=== PATIENT | female | born 1940 | race Caucasian/White ===

== ENCOUNTER 2021-11-23 06:21 | Inpatient (IN) ==
[2021-11-23] MEDS ORDERED: Piperacillin/Tazobac ADVAN 3.375 GM in NS 0.9% 100 ml BAG 100 ML IV ONE (06:48)
[2021-11-23] MEDS: NS 0.9% 1000 ml BAG 1,000 ML IV SCH (06:56)
[2021-11-23 07:14] LABS: Hematocrit 33 % (35-47); Hemoglobin 11.1 g/dL (12.0-16.0); Mean Corpuscular HGB Conc 33 g/dL (31-36); Mean Corpuscular Hemoglobin 31 pg (27-31); Mean Corpuscular Volume 92 fL (80-97); Mean Platelet Volume 9.5 fL (7.4-10.4); Platelet Count 185 10^3/uL (150-450); Red Blood Count 3.58 10^6 /uL (3.70-4.87); Red Cell Distribution Width 13 % (10-15); White Blood Count 10.3 10^3/uL (3.5-10.8)
[2021-11-23 07:23] LABS: INR 1.19 (0.86-1.15)
[2021-11-23 07:24] LABS: Activated Partial Thrombo Time 24.9 seconds (26.0-38.0)
[2021-11-23 07:50] LABS: Albumin/Globulin Ratio 1.4 (1-3); C Reactive Protein 150.67 mg/L (<8.01); Calcium 9.5 mg/dL (8.6-10.3); Globulin 2.9 g/dL (2-4); Potassium 4.2 mmol/L (3.5-5.0); Total Bilirubin 0.6 mg/dL (0.2-1.0); Total Protein 6.9 g/dL (6.4-8.9); eGFR CKD-EPI 39.7 (>60)
[2021-11-23 07:52] LABS: ABS Lymphocytes 0.4 10^3/ul (1.0-4.8); ABS Monocytes 0.1 10^3/ul (0-0.8); ABS Neutrophils 9.8 10^3/ul (1.5-7.7); Eosinophil % 0.3 %
[2021-11-23] MEDS ORDERED: Vancomycin 1,250 MG in NS 0.9% 250 ml 250 ML IVPB ONE (08:00)
[2021-11-23] MEDS: Lactated Ringers 1000 ml BAG 1,000 ML IV SCH (08:31)
[2021-11-23] MEDS ORDERED: Morphine 2 MG/ML SYRINGE IV ONE (09:33)
[2021-11-23] MEDS ORDERED: Ondansetron 4 mg VIAL 2 MG/ML 2 ml VIAL IV ONE (09:33)
[2021-11-23 09:46] LABS: Urine Appearance Cloudy; Urine Bilirubin Negative (Negative); Urine Blood 1+ (Negative); Urine Color Yellow; Urine Glucose 3+(>=500 mg/dL) (Negative); Urine Ketones Negative (Negative); Urine Nitrite Positive (Negative); Urine Protein 1+(30 mg/dL) (Negative); Urine Specific Gravity 1.013 (1.002-1.030); Urine Urobilinogen Negative (Negative)
[2021-11-23 09:52] LABS: Urine Bacteria 1+ (Absent); Urine Granular Casts Present (Absent); Urine Red Blood Cell 3+(>10/hpf) (Absent); Urine Squamous Epithelial Cell Present (Absent); Urine White Blood Cell Trace(0-5/hpf) (Absent)
[2021-11-23 10:01] LABS: High Sensitivity Troponin 1 Hr 22 pg/mL (<15)
[2021-11-23] MEDS ORDERED: NS 0.9% 1000 ml BAG 1,000 ML IV SCH (12:15)
[2021-11-23] MEDS: Enoxaparin 40 MG/0.4 ML SYR SUBCUT SCH (12:18)
[2021-11-23] MEDS ORDERED: cefTRIAXone 1 gm/50 mL D5W 1 GM/50 ML BAG IV SCH (15:00)
[2021-11-23] MEDS ORDERED: Dextrose 50% Syringe 50 ml 25 GM/50 ML SYRINGE IV PUSH PRN (15:48)
[2021-11-23] MEDS ORDERED: CEFEPIME 2 GM in Dextrose 50 mL IV SCH (20:00)
[2021-11-24 05:16] LABS: ABS Eosinophils 0.1 10^3/ul (0-0.6); ABS Lymphocytes 0.9 10^3/ul (1.0-4.8); ABS Monocytes 0.9 10^3/ul (0-0.8); ABS Neutrophils 11.2 10^3/ul (1.5-7.7); Eosinophil % 0.6 %; Hematocrit 29 % (35-47); Hemoglobin 9.2 g/dL (12.0-16.0); Lymphocyte % 6.9 %; Mean Corpuscular HGB Conc 32 g/dL (31-36); Mean Corpuscular Hemoglobin 30 pg (27-31); Mean Corpuscular Volume 94 fL (80-97); Mean Platelet Volume 10.4 fL (7.4-10.4); Platelet Count 134 10^3/uL (150-450); Red Blood Count 3.09 10^6 /uL (3.70-4.87); Red Cell Distribution Width 14 % (10-15)
[2021-11-24 05:18] LABS: Calcium 7.8 mg/dL (8.6-10.3); Potassium 4.2 mmol/L (3.5-5.0)
[2021-11-24 05:24] LABS: eGFR CKD-EPI 52.7 (>60)
[2021-11-24] MEDS ORDERED: Acetaminophen IV 1 GM/100ML 100 ML IV PRN (06:29)
[2021-11-24] MEDS ORDERED: cefTRIAXone 1 gm/50 mL D5W 1 GM/50 ML BAG IV SCH (08:00)
[2021-11-24] MEDS ORDERED: Iohexol 350 (CONTRAST) 500 ML MDV IV ONE (08:36)
[2021-11-24] MEDS ORDERED: Lactated Ringers 1000 ml BAG 1,000 ML IV SCH (09:00)
[2021-11-24] MEDS: Aspirin EC 81 mg TAB.EC (enteric coated) PO SCH (10:15)
[2021-11-24] MEDS ORDERED: Piperacillin/Tazobac ADVAN 3.375 GM in NS 0.9% 100 ml BAG 100 ML IV ONE (12:43)
[2021-11-24] MEDS ORDERED: Zosyn per Pharmacy NOTE FOLLOW UP SCH (13:00)
[2021-11-24] MEDS: Enoxaparin 40 MG/0.4 ML SYR SUBCUT SCH (13:13)
[2021-11-24] MEDS: ZOSYN 3.375 GM Q8H per EXTENDED INFUSION IV SCH ×2 (17:58→21:06)
[2021-11-24] MEDS ORDERED: Amoxicillin/Clavul 875/125 TAB (Augmentin 875 tab) PO SCH (21:00)
[2021-11-25 05:52] LABS: ABS Eosinophils 0.2 10^3/ul (0-0.6); ABS Lymphocytes 0.8 10^3/ul (1.0-4.8); ABS Monocytes 0.8 10^3/ul (0-0.8); ABS Neutrophils 8.4 10^3/ul (1.5-7.7); Eosinophil % 1.8 %; Hematocrit 29 % (35-47); Hemoglobin 9.4 g/dL (12.0-16.0); Lymphocyte % 7.7 %; Mean Corpuscular HGB Conc 33 g/dL (31-36); Mean Corpuscular Hemoglobin 30 pg (27-31); Mean Corpuscular Volume 92 fL (80-97); Mean Platelet Volume 9.5 fL (7.4-10.4); Platelet Count 165 10^3/uL (150-450); Red Blood Count 3.13 10^6 /uL (3.70-4.87); Red Cell Distribution Width 13 % (10-15); White Blood Count 10.1 10^3/uL (3.5-10.8)
[2021-11-25 06:17] LABS: Albumin 3.4 g/dL (3.2-5.2); Albumin/Globulin Ratio 1.3 (1-3); Calcium 8.8 mg/dL (8.6-10.3); Globulin 2.7 g/dL (2-4); Potassium 3.9 mmol/L (3.5-5.0); Total Bilirubin 0.3 mg/dL (0.2-1.0); Total Protein 6.1 g/dL (6.4-8.9); eGFR CKD-EPI 49.9 (>60)
[2021-11-25] MEDS ORDERED: Piperacillin/Tazobac ADVAN 3.375 GM in NS 0.9% 100 ml BAG 100 ML IV ONE (09:00)
[2021-11-25] MEDS ORDERED: Zosyn per Pharmacy NOTE FOLLOW UP SCH (09:00)
[2021-11-25] MEDS: Aspirin EC 81 mg TAB.EC (enteric coated) PO SCH (09:35)
[2021-11-25] MEDS: Enoxaparin 40 MG/0.4 ML SYR SUBCUT SCH (11:55)
[2021-11-25] MEDS ORDERED: ZOSYN 3.375 GM Q8H per EXTENDED INFUSION IV SCH (13:30)
[2021-11-25] MEDS ORDERED: cefTRIAXone 1 gm/50 mL D5W 1 GM/50 ML BAG IV SCH (21:00)
[2021-11-26 07:21] LABS: ABS Eosinophils 0.2 10^3/ul (0-0.6); ABS Monocytes 0.7 10^3/ul (0-0.8); ABS Neutrophils 6.3 10^3/ul (1.5-7.7); Eosinophil % 2.4 %; Hematocrit 28 % (35-47); Hemoglobin 9.6 g/dL (12.0-16.0); Lymphocyte % 12.5 %; Mean Corpuscular HGB Conc 34 g/dL (31-36); Mean Corpuscular Hemoglobin 31 pg (27-31); Mean Corpuscular Volume 91 fL (80-97); Mean Platelet Volume 9.3 fL (7.4-10.4); Platelet Count 189 10^3/uL (150-450); Red Blood Count 3.11 10^6 /uL (3.70-4.87); Red Cell Distribution Width 13 % (10-15); White Blood Count 8.3 10^3/uL (3.5-10.8)
[2021-11-26 07:55] LABS: Calcium 9.1 mg/dL (8.6-10.3); Magnesium 1.5 mg/dL (1.9-2.7); Potassium 3.6 mmol/L (3.5-5.0); eGFR CKD-EPI 60.2 (>60)
[2021-11-26] MEDS: Aspirin EC 81 mg TAB.EC (enteric coated) PO SCH (08:09)
[2021-11-26] MEDS ORDERED: Magnesium Sulfate IV 3 GM in NS 0.9% 100 ml BAG 100 ML IVPB ONE (08:38)
[2021-11-26] MEDS ORDERED: Magnesium Sulfate 2 GM IV (Premix) IVPB ONE (09:00)
[2021-11-26] MEDS ORDERED: Magnesium Sulfate 1 GM IV 1 GM/100 ML BAG IV ONE (10:00)
[2021-11-26 11:12] VITALS: BP 142/67
== END 2021-11-26 11:40 | disposition home or self-care (01) | DRG 189 ==
LOC: ED 06:21 → SUATTDRO 11:17 → EDHOLD 11:17 → MED 15:54
PROVIDERS: ADMIT Hospitalist; ATTEND Student in an Organized Health Care Education/Training Program

== ENCOUNTER 2021-12-07 12:35 | Inpatient (IN) ==
[2021-12-07] MEDS ORDERED: NS 0.9% 1000 ml BAG 500 ML IV ONE (13:00)
[2021-12-07] MEDS ORDERED: Ondansetron 4 mg VIAL 2 MG/ML 2 ml VIAL IV ONE ×2 (13:03→17:12)
[2021-12-07 13:48] LABS: ABS Basophils 0.1 10^3/ul (0-0.2); ABS Eosinophils 0.1 10^3/ul (0-0.6); ABS Lymphocytes 1.4 10^3/ul (1.0-4.8); ABS Monocytes 0.7 10^3/ul (0-0.8); ABS Neutrophils 9.7 10^3/ul (1.5-7.7); Eosinophil % 0.9 %; Hematocrit 35 % (35-47); Hemoglobin 11.3 g/dL (12.0-16.0); Lymphocyte % 11.3 %; Mean Corpuscular HGB Conc 32 g/dL (31-36); Mean Corpuscular Hemoglobin 30 pg (27-31); Mean Corpuscular Volume 94 fL (80-97); Mean Platelet Volume 9.1 fL (7.4-10.4); Platelet Count 327 10^3/uL (150-450); Red Blood Count 3.78 10^6 /uL (3.70-4.87); Red Cell Distribution Width 14 % (10-15)
[2021-12-07 13:52] LABS: Urine Appearance Cloudy; Urine Bilirubin Negative (Negative); Urine Blood 1+ (Negative); Urine Color Yellow; Urine Glucose 3+(>=500 mg/dL) (Negative); Urine Ketones Negative (Negative); Urine Nitrite Negative (Negative); Urine Protein Negative (Negative); Urine Specific Gravity 1.008 (1.002-1.030); Urine Urobilinogen Negative (Negative)
[2021-12-07 14:11] LABS: Urine Bacteria 1+ (Absent); Urine Red Blood Cell 3+(>10/hpf) (Absent); Urine Squamous Epithelial Cell Present (Absent); Urine White Blood Cell 2+(11-20/hpf) (Absent); Urine Yeast Present (Absent)
[2021-12-07 14:11] LABS: High Sens Troponin Baseline 6 pg/mL (<15)
[2021-12-07 14:32] LABS: TSH Ultra Thyroid Stim Horm 18.66 mcIU/mL (0.34-5.60)
[2021-12-07 14:36] LABS: ALT 20 U/L (7-52); Albumin 3.6 g/dL (3.2-5.2); Albumin/Globulin Ratio 1.4 (1-3); Alkaline Phosphatase 110 U/L (35-149); Blood Urea Nitrogen 14 mg/dL (6-24); CO2 Carbon Dioxide 25 mmol/L (22-32); Chloride 104 mmol/L (101-111); Globulin 2.6 g/dL (2-4); Glucose 435 mg/dL (70-100); Sodium 139 mmol/L (135-145); Total Protein 6.2 g/dL (6.4-8.9); eGFR CKD-EPI 49.9 (>60)
[2021-12-07] MEDS ORDERED: NS 0.9% 1000 ml BAG 1,000 ML IV ONE (14:53)
[2021-12-07] MEDS ORDERED: cefTRIAXone 1 gm/50 mL D5W 1 GM/50 ML BAG IV ONE (14:54)
[2021-12-07 14:56] LABS: Anion Gap 10 mmol/L (2-11); Magnesium 1.9 mg/dL (1.9-2.7)
[2021-12-07] MEDS ORDERED: Iohexol 350 (CONTRAST) 500 ML MDV IV ONE (15:43)
[2021-12-07 15:48] LABS: High Sensitivity Troponin 1 Hr 3 pg/mL (<15)
[2021-12-07 16:20] LABS: Potassium Redraw 4.3 mmol/L (3.5-5.0)
[2021-12-07] MEDS ORDERED: Ondansetron 4 mg VIAL 2 MG/ML 2 ml VIAL IV PRN (19:15)
[2021-12-07] MEDS ORDERED: Dextrose 50% Syringe 50 ml 25 GM/50 ML SYRINGE IV PUSH PRN (19:21)
[2021-12-07] MEDS: Enoxaparin 40 MG/0.4 ML SYR SUBCUT SCH (21:02)
[2021-12-07] MEDS: metroNIDAZOLE IV 500 MG/100ML 500 MG/100 ML BAG IVPB SCH (22:23)
[2021-12-08 05:43] LABS: Hematocrit 34 % (35-47); Hemoglobin 11.2 g/dL (12.0-16.0); Mean Corpuscular HGB Conc 33 g/dL (31-36); Mean Corpuscular Hemoglobin 31 pg (27-31); Mean Corpuscular Volume 93 fL (80-97); Mean Platelet Volume 9.6 fL (7.4-10.4); Platelet Count 278 10^3/uL (150-450); Red Blood Count 3.61 10^6 /uL (3.70-4.87); Red Cell Distribution Width 14 % (10-15); White Blood Count 15.1 10^3/uL (3.5-10.8)
[2021-12-08 06:09] LABS: CO2 Carbon Dioxide 21 mmol/L (22-32); Calcium 9.1 mg/dL (8.6-10.3); Chloride 107 mmol/L (101-111); Magnesium 1.6 mg/dL (1.9-2.7); Sodium 142 mmol/L (135-145)
[2021-12-08 06:14] LABS: Blood Urea Nitrogen 13 mg/dL (6-24); Glucose 250 mg/dL (70-100); eGFR CKD-EPI 57.3 (>60)
[2021-12-08] MEDS: metroNIDAZOLE IV 500 MG/100ML 500 MG/100 ML BAG IVPB SCH ×3 (06:20→22:31)
[2021-12-08 06:58] LABS: Anion Gap 14 mmol/L (2-11)
[2021-12-08] MEDS ORDERED: Magnesium Sulf 4 GM/100 ML IV 4,000 MG/100 ML BAG IVPB ONE (07:30)
[2021-12-08] MEDS: Aspirin EC 81 mg TAB.EC (enteric coated) PO SCH (08:06)
[2021-12-08] MEDS ORDERED: Acetaminophen IV 1 GM/100ML 100 ML IV ONE (08:58)
[2021-12-08 09:37] LABS: C Reactive Protein 65.58 mg/L (<8.01)
[2021-12-08] MEDS: cefTRIAXone 1 gm/50 mL D5W 1 GM/50 ML BAG IV SCH (09:41)
[2021-12-08] MEDS ORDERED: Vancomycin 1,000 MG in NS 0.9% 250 ml 250 ML IVPB ONE (18:30)
[2021-12-08] MEDS ORDERED: Vancomycin per Pharmacy 1 EA NOTE FOLLOW UP PRN (19:27)
[2021-12-08] MEDS: Enoxaparin 40 MG/0.4 ML SYR SUBCUT SCH (21:20)
[2021-12-09] MEDS ORDERED: Vancomycin 500 MG in NS 0.9% 250 ML IVPB SCH (06:00)
[2021-12-09] MEDS: Aspirin EC 81 mg TAB.EC (enteric coated) PO SCH (08:02)
[2021-12-09] MEDS: Vancomycin 500 MG in NS 0.9% 250 ml 250 ML IVPB SCH ×2 (09:20→21:40)
[2021-12-09 09:36] LABS: Hematocrit 32 % (35-47); Hemoglobin 10.4 g/dL (12.0-16.0); Mean Corpuscular HGB Conc 32 g/dL (31-36); Mean Corpuscular Hemoglobin 31 pg (27-31); Mean Corpuscular Volume 95 fL (80-97); Red Blood Count 3.39 10^6 /uL (3.70-4.87); Red Cell Distribution Width 14 % (10-15); White Blood Count 16.8 10^3/uL (3.5-10.8)
[2021-12-09] MEDS: metroNIDAZOLE IV 500 MG/100ML 500 MG/100 ML BAG IVPB SCH ×3 (09:38→17:38)
[2021-12-09 10:09] LABS: Calcium 8.7 mg/dL (8.6-10.3); Magnesium 2.2 mg/dL (1.9-2.7); Potassium 4.3 mmol/L (3.5-5.0)
[2021-12-09 10:14] LABS: eGFR CKD-EPI 55.9 (>60)
[2021-12-09 10:52] LABS: ABS Lymphocytes 1.2 10^3/ul (1.0-4.8); ABS Neutrophils 14.5 10^3/ul (1.5-7.7); Eosinophil % 0.1 %; Lymphocyte % 7.2 %; Platelet Count 248 10^3/uL (150-450)
[2021-12-09] MEDS ORDERED: Lorazepam PYXIS KEY PRN (11:55)
[2021-12-09] MEDS ORDERED: LORazepam 2 mg VIAL 1 ml IV PUSH PRN (11:55)
[2021-12-09] MEDS: cefTRIAXone 1 gm/50 mL D5W 1 GM/50 ML BAG IV SCH ×2 (12:42→13:17)
[2021-12-09] MEDS: Enoxaparin 40 MG/0.4 ML SYR SUBCUT SCH (21:40)
[2021-12-10] MEDS: metroNIDAZOLE IV 500 MG/100ML 500 MG/100 ML BAG IVPB SCH ×3 (01:59→18:34)
[2021-12-10] MEDS ORDERED: Vancomycin Trough Check NOTE FOLLOW UP ONE (08:30)
[2021-12-10 08:52] LABS: ABS Basophils 0.1 10^3/ul (0-0.2); ABS Eosinophils 0.1 10^3/ul (0-0.6); ABS Lymphocytes 1.1 10^3/ul (1.0-4.8); ABS Monocytes 0.6 10^3/ul (0-0.8); ABS Neutrophils 7.6 10^3/ul (1.5-7.7); Eosinophil % 1.2 %; Hematocrit 26 % (35-47); Hemoglobin 8.6 g/dL (12.0-16.0); Lymphocyte % 11.7 %; Mean Corpuscular HGB Conc 33 g/dL (31-36); Mean Corpuscular Hemoglobin 31 pg (27-31); Mean Corpuscular Volume 93 fL (80-97); Mean Platelet Volume 8.7 fL (7.4-10.4); Platelet Count 243 10^3/uL (150-450); Red Cell Distribution Width 14 % (10-15); White Blood Count 9.5 10^3/uL (3.5-10.8)
[2021-12-10 09:02] LABS: Calcium 8.2 mg/dL (8.6-10.3); Potassium 3.4 mmol/L (3.5-5.0)
[2021-12-10 09:08] LABS: C Reactive Protein 77.91 mg/L (<8.01); eGFR CKD-EPI 69.9 (>60)
[2021-12-10] MEDS: Aspirin EC 81 mg TAB.EC (enteric coated) PO SCH (09:09)
[2021-12-10] MEDS: Vancomycin 500 MG in NS 0.9% 250 ml 250 ML IVPB SCH ×2 (10:02→10:04)
[2021-12-10] MEDS ORDERED: Vancomycin 1,250 MG in NS 0.9% 250 ml 250 ML IVPB SCH (11:00)
[2021-12-10] MEDS: cefTRIAXone 1 gm/50 mL D5W 1 GM/50 ML BAG IV SCH (13:13)
[2021-12-10] MEDS: Linezolid 600 MG IVPREMIX(*) 600 MG/300 ML BAG IVPB SCH (17:29)
[2021-12-10] MEDS: Enoxaparin 40 MG/0.4 ML SYR SUBCUT SCH (20:46)
[2021-12-11] MEDS: metroNIDAZOLE IV 500 MG/100ML 500 MG/100 ML BAG IVPB SCH ×3 (02:04→18:16)
[2021-12-11] MEDS: Linezolid 600 MG IVPREMIX(*) 600 MG/300 ML BAG IVPB SCH ×2 (04:10→16:48)
[2021-12-11 08:03] LABS: ABS Eosinophils 0.2 10^3/ul (0-0.6); ABS Lymphocytes 1.3 10^3/ul (1.0-4.8); ABS Monocytes 0.6 10^3/ul (0-0.8); ABS Neutrophils 5.7 10^3/ul (1.5-7.7); Eosinophil % 2.3 %; Hematocrit 27 % (35-47); Hemoglobin 9.1 g/dL (12.0-16.0); Lymphocyte % 16.9 %; Mean Corpuscular HGB Conc 34 g/dL (31-36); Mean Corpuscular Hemoglobin 31 pg (27-31); Mean Corpuscular Volume 92 fL (80-97); Mean Platelet Volume 9.2 fL (7.4-10.4); Nucleated Red Blood Cells % 0.1; Platelet Count 236 10^3/uL (150-450); Red Blood Count 2.94 10^6 /uL (3.70-4.87); Red Cell Distribution Width 14 % (10-15); White Blood Count 7.8 10^3/uL (3.5-10.8)
[2021-12-11 08:11] LABS: Calcium 8.3 mg/dL (8.6-10.3); Potassium 3.9 mmol/L (3.5-5.0); eGFR CKD-EPI 66.1 (>60)
[2021-12-11] MEDS: Aspirin EC 81 mg TAB.EC (enteric coated) PO SCH (09:09)
[2021-12-11] MEDS: cefTRIAXone 1 gm/50 mL D5W 1 GM/50 ML BAG IV SCH (12:02)
[2021-12-11] MEDS: Enoxaparin 40 MG/0.4 ML SYR SUBCUT SCH (19:59)
[2021-12-12] MEDS: metroNIDAZOLE IV 500 MG/100ML 500 MG/100 ML BAG IVPB SCH ×3 (01:42→19:25)
[2021-12-12] MEDS: Linezolid 600 MG IVPREMIX(*) 600 MG/300 ML BAG IVPB SCH ×2 (04:05→18:12)
[2021-12-12] MEDS: Aspirin EC 81 mg TAB.EC (enteric coated) PO SCH ×2 (08:17→10:03)
[2021-12-12 08:20] LABS: Calcium 8.2 mg/dL (8.6-10.3); Magnesium 1.4 mg/dL (1.9-2.7); Potassium 3.3 mmol/L (3.5-5.0); eGFR CKD-EPI 68.9 (>60)
[2021-12-12] MEDS: cefTRIAXone 1 gm/50 mL D5W 1 GM/50 ML BAG IV SCH (11:51)
[2021-12-12] MEDS ORDERED: Magnesium Sulf 4 GM/100 ML IV 4,000 MG/100 ML BAG IVPB ONE (15:38)
[2021-12-12] MEDS ORDERED: Potassium Chloride LIQUID 20 MEQ/15 ML LIQUID PO ONE (15:39)
[2021-12-12] MEDS: Enoxaparin 40 MG/0.4 ML SYR SUBCUT SCH (19:40)
[2021-12-13] MEDS: metroNIDAZOLE IV 500 MG/100ML 500 MG/100 ML BAG IVPB SCH ×3 (01:37→19:32)
[2021-12-13] MEDS: Linezolid 600 MG IVPREMIX(*) 600 MG/300 ML BAG IVPB SCH ×2 (04:07→17:34)
[2021-12-13] MEDS: Aspirin EC 81 mg TAB.EC (enteric coated) PO SCH (08:22)
[2021-12-13] MEDS ORDERED: Vancomycin Trough Check NOTE FOLLOW UP ONE (10:30)
[2021-12-13] MEDS: cefTRIAXone 1 gm/50 mL D5W 1 GM/50 ML BAG IV SCH (12:05)
[2021-12-13] MEDS: Enoxaparin 40 MG/0.4 ML SYR SUBCUT SCH (19:35)
[2021-12-14] MEDS: metroNIDAZOLE IV 500 MG/100ML 500 MG/100 ML BAG IVPB SCH ×3 (01:20→19:33)
[2021-12-14] MEDS: Linezolid 600 MG IVPREMIX(*) 600 MG/300 ML BAG IVPB SCH ×2 (04:13→17:50)
[2021-12-14 07:03] LABS: ABS Eosinophils 0.2 10^3/ul (0-0.6); ABS Lymphocytes 1.3 10^3/ul (1.0-4.8); ABS Monocytes 0.6 10^3/ul (0-0.8); ABS Neutrophils 2.7 10^3/ul (1.5-7.7); Eosinophil % 4.1 %; Hematocrit 29 % (35-47); Hemoglobin 9.8 g/dL (12.0-16.0); Lymphocyte % 27.7 %; Mean Corpuscular HGB Conc 34 g/dL (31-36); Mean Corpuscular Hemoglobin 31 pg (27-31); Mean Corpuscular Volume 92 fL (80-97); Mean Platelet Volume 8.3 fL (7.4-10.4); Platelet Count 268 10^3/uL (150-450); Red Blood Count 3.17 10^6 /uL (3.70-4.87); Red Cell Distribution Width 14 % (10-15); White Blood Count 4.8 10^3/uL (3.5-10.8)
[2021-12-14 07:44] LABS: Calcium 8.2 mg/dL (8.6-10.3); Magnesium 1.8 mg/dL (1.9-2.7); Potassium 3.1 mmol/L (3.5-5.0)
[2021-12-14] MEDS: Aspirin EC 81 mg TAB.EC (enteric coated) PO SCH (10:28)
[2021-12-14] MEDS: cefTRIAXone 1 gm/50 mL D5W 1 GM/50 ML BAG IV SCH (12:40)
[2021-12-14] MEDS ORDERED: Potassium Chloride LIQUID 20 MEQ/15 ML LIQUID PO ONE (15:30)
[2021-12-14] MEDS ORDERED: Magnesium Sulfate 2 gm BAG 2 GM/50 ML BAG IVPB ONE (15:31)
[2021-12-14] MEDS: Enoxaparin 40 MG/0.4 ML SYR SUBCUT SCH (19:34)
[2021-12-14] MEDS: KCL 20 MEQ/100 ML IVPREMIX 20 MEQ/100 ML BAG IV SCH ×2 (20:50→21:15)
[2021-12-15] MEDS: metroNIDAZOLE IV 500 MG/100ML 500 MG/100 ML BAG IVPB SCH ×3 (02:39→17:53)
[2021-12-15] MEDS: Linezolid 600 MG IVPREMIX(*) 600 MG/300 ML BAG IVPB SCH ×2 (05:33→16:27)
[2021-12-15 06:10] LABS: Calcium 8.2 mg/dL (8.6-10.3); Potassium 3.4 mmol/L (3.5-5.0); eGFR CKD-EPI 68.9 (>60)
[2021-12-15] MEDS: Aspirin EC 81 mg TAB.EC (enteric coated) PO SCH (09:02)
[2021-12-15] MEDS ORDERED: KCL 20 MEQ/100 ML IVPREMIX 20 MEQ/100 ML BAG IV ONE (10:38)
[2021-12-15] MEDS: cefTRIAXone 1 gm/50 mL D5W 1 GM/50 ML BAG IV SCH (14:47)
[2021-12-15] MEDS: Enoxaparin 40 MG/0.4 ML SYR SUBCUT SCH (20:07)
[2021-12-16] MEDS: metroNIDAZOLE IV 500 MG/100ML 500 MG/100 ML BAG IVPB SCH ×2 (02:44→08:52)
[2021-12-16] MEDS: Linezolid 600 MG IVPREMIX(*) 600 MG/300 ML BAG IVPB SCH (03:45)
[2021-12-16 06:52] LABS: Rapid COVID-19 Molecular Undetected (Undetected)
[2021-12-16] MEDS: KCL 20 MEQ/100 ML IVPREMIX 20 MEQ/100 ML BAG IV SCH ×2 (07:19→08:52)
[2021-12-16] MEDS: Aspirin EC 81 mg TAB.EC (enteric coated) PO SCH (08:38)
[2021-12-16 11:47] VITALS: BP 136/84
== END 2021-12-16 13:15 | DRG 872 ==
LOC: ED 12:35 → EDHOLD 19:15 → SUATTDRO 19:15 → MED 21:43
PROVIDERS: ADMIT Student in an Organized Health Care Education/Training Program; ATTEND Student in an Organized Health Care Education/Training Program

== ENCOUNTER 2023-05-28 22:34 | Inpatient (IN) ==
[2023-05-28] MEDS ORDERED: Haloperidol 5 mg/ml SDV IV/IM 5 MG/ML AMP IV SLOW PU PRN (22:52)
[2023-05-28] MEDS ORDERED: Ondansetron 4 mg VIAL 2 MG/ML 2 ml VIAL IV ONE (22:52)
[2023-05-28] MEDS ORDERED: Morphine 4 MG/ML VIAL (1 ml) IV ONE (22:53)
[2023-05-28] MEDS ORDERED: Polyethylene Glycol 3350 17 GM PACKET PO PRN (23:29)
[2023-05-28] MEDS ORDERED: Senna TAB 8.6 mg TAB PO PRN (23:29)
[2023-05-28] MEDS ORDERED: Heparin 5000 UNITS/ML 1 mL VIAL SUBCUT ONE (23:31)
[2023-05-29] MEDS ORDERED: Heparin 5000 UNITS/ML 1 mL VIAL ONE (00:18)
[2023-05-29 00:24] LABS: ABS Lymphocytes 0.7 10^3/uL (1.0-4.8); ABS Monocytes 0.8 10^3/uL (0.0-0.9); ABS Neutrophils 8.5 10^3/uL (1.5-7.6); Eosinophil % 0.3 %; Hematocrit 22.6 % (35-45); Hemoglobin 7.8 g/dL (11.5-14.3); Mean Corpuscular Hgb Conc 34.6 g/dL (31-36); Mean Corpuscular Volume 92.4 fL (80-97); Mean Platelet Volume 8.4 fL (7.5-11.2); Platelet Count 284 10^3/uL (150-450); Red Blood Count 2.45 10^6/uL (3.63-4.92); Red Cell Distribution Width 15.3 % (12-17); White Blood Count 10.1 10^3/uL (3.8-11.8)
[2023-05-29] MEDS ORDERED: Dextrose 50% Syringe 50 ml 25 GM/50 ML SYRINGE IV PUSH PRN (00:43)
[2023-05-29 00:44] LABS: Calcium 8.8 mg/dL (8.6-10.3); Creatinine, Serum 1.47 mg/dL (0.51-0.95); Magnesium 2.3 mg/dL (1.9-2.7); Potassium 4.6 mmol/L (3.5-5.0); eGFR CKD-EPI 34.8 (>60)
[2023-05-29] MEDS: Acetaminophen IV 1 GM/100ML 1,000 MG/100 ML BAG IV SCH ×4 (00:48→21:20)
[2023-05-29] MEDS: Morphine 2 MG/ML SYRINGE IV PRN ×2 (01:52→08:08)
[2023-05-29 06:33] LABS: ABS Lymphocytes 1.1 10^3/uL (1.0-4.8); ABS Monocytes 0.7 10^3/uL (0.0-0.9); ABS Neutrophils 7.1 10^3/uL (1.5-7.6); Eosinophil % 0.1 %; Hematocrit 28.7 % (35-45); Hemoglobin 9.8 g/dL (11.5-14.3); Mean Corpuscular Hemoglobin 30.8 pg (27-33); Mean Corpuscular Hgb Conc 34.2 g/dL (31-36); Mean Corpuscular Volume 89.9 fL (80-97); Mean Platelet Volume 8.5 fL (7.5-11.2); Platelet Count 265 10^3/uL (150-450); Red Blood Count 3.19 10^6/uL (3.63-4.92); Red Cell Distribution Width 16.1 % (12-17); White Blood Count 8.9 10^3/uL (3.8-11.8)
[2023-05-29] MEDS ORDERED: Lactated Ringers 1000 ml BAG 1,000 ML IV SCH (07:00)
[2023-05-29 07:48] LABS: TSH Ultra Thyroid Stim Horm 20.51 mcIU/mL (0.34-5.60)
[2023-05-29 08:02] LABS: Vitamin D Total 25(OH) 45.2 ng/mL (20-50)
[2023-05-29 08:06] LABS: Free T4 0.69 ng/dL (0.61-1.12)
[2023-05-29] MEDS ORDERED: Aspirin EC 81 mg TAB.EC (enteric coated) PO SCH (09:00)
[2023-05-29] MEDS ORDERED: ceFAZolin 2 GM in NS PREMIX 2 GM/100 ML BAG IVPB ONE (15:07)
[2023-05-29] MEDS ORDERED: Naloxone 0.4 mg VIAL 0.4 mg/ml 1 ml VIAL IV PRN (15:31)
[2023-05-29] MEDS ORDERED: HYDROmorphone 1 MG/1 ML SYRINGE IV PRN (15:31)
[2023-05-29] MEDS ORDERED: Propofol 10 MG/ML 20 ML BTL ONE (15:57)
[2023-05-29] MEDS ORDERED: Lidocaine 2% PF 5 ML VIAL ONE (15:57)
[2023-05-29] MEDS ORDERED: Ondansetron 4 mg VIAL 2 MG/ML 2 ml VIAL ONE (15:57)
[2023-05-29] MEDS ORDERED: fentaNYL 100 mcg/2 ml 50 MCG/ML VIAL ONE (15:57)
[2023-05-29] MEDS ORDERED: Dexamethasone IV 4 MG/ML VIAL 1 ml VIAL ONE (15:57)
[2023-05-29] MEDS ORDERED: Morphine 2 MG/ML SYRINGE IV PRN (16:22)
[2023-05-29] MEDS ORDERED: Magnesium Hydroxide LIQ 30 ML UDC PO PRN (16:22)
[2023-05-29] MEDS ORDERED: Senna TAB 8.6 mg TAB PO PRN (16:22)
[2023-05-29] MEDS ORDERED: Polyethylene Glycol 3350 17 GM PACKET PO PRN (16:22)
[2023-05-29] MEDS ORDERED: Bupivacaine 0.25% SDV 30 ML ONE (16:43)
[2023-05-29] MEDS ORDERED: Acetaminophen IV 1 GM/100ML 1,000 MG/100 ML BAG IV ONE (16:56)
[2023-05-29] MEDS ORDERED: KETAMINE HCL 10 MG/ML 20 ml VIAL (200 MG) ONE (16:56)
[2023-05-29] MEDS ORDERED: Bupivacaine 0.5% 50 ML MDV VIAL ONE (17:21)
[2023-05-29] MEDS: Ferric Gluconate IV 250 MG in NS 0.9% 250 ml 200 ML IVPB SCH (19:57)
[2023-05-29 20:01] LABS: Hematocrit 27.6 % (35-45); Hemoglobin 9.5 g/dL (11.5-14.3)
[2023-05-29] MEDS: Lactated Ringers 1000 ml BAG 1,000 ML IV SCH (20:12)
[2023-05-29] MEDS: Magnesium Hydroxide LIQ 30 ML UDC PO SCH (21:22)
[2023-05-30] MEDS: ceFAZolin 1 GM ADVAN 1 GM in NS 0.9% 50 ML 50 ML IVPB SCH ×3 (00:44→22:42)
[2023-05-30] MEDS: Lactated Ringers 1000 ml BAG 1,000 ML IV SCH ×2 (06:24→23:43)
[2023-05-30 06:30] LABS: Platelet Count 233 10^3/uL (150-450)
[2023-05-30 06:49] LABS: Calcium 8.1 mg/dL (8.6-10.3); Creatinine, Serum 1.4 mg/dL (0.51-0.95); Potassium 5.2 mmol/L (3.5-5.0); eGFR CKD-EPI 36.9 (>60)
[2023-05-30 08:14] LABS: Hematocrit 25.6 % (35-45); Hemoglobin 8.8 g/dL (11.5-14.3); Mean Platelet Volume 8.7 fL (7.5-11.2)
[2023-05-30] MEDS: Acetaminophen IV 1 GM/100ML 1,000 MG/100 ML BAG IV SCH ×3 (09:18→23:19)
[2023-05-30] MEDS ORDERED: NS 0.9% 500 ml BAG 500 ML IV ONE (10:07)
[2023-05-30] MEDS: Magnesium Hydroxide LIQ 30 ML UDC PO SCH ×2 (10:24→21:32)
[2023-05-30] MEDS ORDERED: Senna TAB 8.6 mg TAB PO PRN (11:25)
[2023-05-30] MEDS: Ferric Gluconate IV 250 MG in NS 0.9% 250 ml 200 ML IVPB SCH (12:26)
[2023-05-30] MEDS: Polyethylene Glycol 3350 17 GM PACKET PO SCH (14:18)
[2023-05-30] MEDS: Enoxaparin 30 MG/0.3 ML SYR SUBCUT SCH (14:18)
[2023-05-31] MEDS: Lactated Ringers 1000 ml BAG 1,000 ML IV SCH (05:32)
[2023-05-31 06:51] LABS: Calcium 7.6 mg/dL (8.6-10.3); Creatinine, Serum 1.16 mg/dL (0.51-0.95); Potassium 4.5 mmol/L (3.5-5.0); eGFR CKD-EPI 46.2 (>60)
[2023-05-31] MEDS: Magnesium Hydroxide LIQ 30 ML UDC PO SCH (08:38)
[2023-05-31] MEDS: Acetaminophen IV 1 GM/100ML 1,000 MG/100 ML BAG IV SCH (08:54)
[2023-05-31] MEDS: Polyethylene Glycol 3350 17 GM PACKET PO SCH (09:03)
[2023-05-31 09:27] LABS: Platelet Count 239 10^3/uL (150-450)
[2023-05-31] MEDS: Ferric Gluconate IV 250 MG in NS 0.9% 250 ml 200 ML IVPB SCH ×3 (09:41→10:41)
[2023-05-31 10:07] VITALS: BP 105/57
[2023-05-31 10:30] LABS: Hematocrit 25.7 % (35-45); Hemoglobin 8.9 g/dL (11.5-14.3); Mean Platelet Volume 8.6 fL (7.5-11.2)
[2023-05-31] MEDS: Enoxaparin 30 MG/0.3 ML SYR SUBCUT SCH (13:05)
[2023-05-31 13:24] LABS: Urine Appearance Cloudy; Urine Bilirubin Negative (Negative); Urine Blood Negative (Negative); Urine Color Yellow; Urine Glucose Negative (Negative); Urine Ketones Negative (Negative); Urine Nitrite Negative (Negative); Urine Protein Negative (Negative); Urine Specific Gravity 1.023 (1.002-1.030); Urine Urobilinogen Negative (Negative)
== END 2023-05-31 14:02 | DRG 482 ==
LOC: ED 22:34 → SUATTDRO 23:29 → EDHOLD 23:29 → SSU 23:29
PROVIDERS: ADMIT Internal Medicine; ATTEND Hospitalist